=== PATIENT | female | born 1975 | race Caucasian/White ===

== ENCOUNTER 2018-10-19 13:52 | Emergency (ER) | payer MEDICARE, MEDICAID ==
--- NOTE | 2018-10-19 14:58 | Emergency Department Record ---
History of Present Illness - General Chief complaint: Vomiting Stated complaint: VOMITING Time Seen by Provider: 10/19/18 14:57 Source: Patient Mode of Arrival: Ambulatory Limitations: No limitations - History of Present Illness Initial comments: pt states she and her friend and her 's friend all became ill after eating food from [employer] in [place].. she has had vomiting and diarrhea MD complaint: Abdominal pain, Diarrhea, Nausea, Vomiting Onset/Timin -: Days(s) Description of Vomiting: Watery Description of Diarrhea: Water, Other Quality: Cramping Consistency: Intermittent Improves with: None Worsens with: None Context: Possible food poisoning Associated Symptoms: Nausea/vomiting - Related Data Home Medications Medication Instructions Recorded Confirmed Last Taken Escitalopram Oxalate [Lexapro] 20 mg PO QHS 10/19/18 10/19/18 10/18/18 Lorazepam [Ativan] 0.5 mg PO ASDIR 10/19/18 10/19/18 10/09/18 Quetiapine Fumarate [Seroquel] 100 mg PO QHS 10/19/18 10/19/18 10/18/18 Previous Rx's Medication Instructions Recorded Promethazine HCl [Phenergan] 12.5 mg PO Q8HR #10 tablet 10/19/18 Allergies Allergy/AdvReac Type Severity Reaction Status Date / Time cephalexin [From Keflex] Allergy RASH Verified 10/19/18 14:00 Penicillins Allergy RASH Verified 10/19/18 13:59 Sulfa (Sulfonamide Allergy RASH Verified 10/19/18 14:00 Antibiotics) Travel Screening - Travel/Exposure Within Last 30 Days Have you traveled within the last 30 days?: No - Travel/Exposure Within Last Year Have you traveled outside the [place] in the last year?: No - Additonal Travel Details Have you been exposed to anyone with a communicable illness?: No - Travel Symptoms Symptom Screening: None Review of Systems Reviewed: No additional complaints except as noted below Constitutional: Reports: As per HPI. Denies: Chills, Fever, Malaise, Night sweats, Weakness, Weight change Eyes: Reports: As per HPI. Denies: Eye discharge, Eye pain, Photophobia, Vision change ENT: Reports: As per HPI. Denies: Congestion, Dental pain, Ear pain, Epistaxis, Hearing loss, Throat pain Respiratory: Reports: As per HPI. Denies: Cough, Dyspnea, Hemoptysis, Stridor, Wheezes Cardiovascular: Reports: As per HPI. Denies: Arrhythmia, Chest pain, Dyspnea on exertion, Edema, Murmurs, Orthopnea, Palpitations, Paroxysmal nocturnal dyspnea, Rheumatic Fever, Syncope Endocrine: Reports: As per HPI. Denies: Fatigue, Heat or cold intolerance, Polydipsia, Polyuria Gastrointestinal: Reports: As per HPI, Abdominal pain, Diarrhea, Nausea, Vomiting. Denies: Constipation, Hematemesis, Hematochezia, Melena Genitourinary: Reports: As per HPI. Denies: Abnormal menses, Discharge, Dyspareunia, Dysuria, Frequency, Hematuria, Incontinence, Retention, Urgency Musculoskeletal: Reports: As per HPI. Denies: Arthralgia, Back pain, Gout, Joint swelling, Myalgia, Neck pain Skin: Reports: As per HPI. Denies: Bruising, Change in color, Change in hair/nails, Lesions, Pruritus, Rash Neurological: Reports: As per HPI. Denies: Abnormal gait, Confusion, Headache, Numbness, Paresthesias, Seizure, Tingling, Tremors, Vertigo, Weakness Psychiatric: Reports: As per HPI. Denies: Anxiety, Auditory hallucinations, Depression, Homicidal thoughts, Suicidal thoughts, Visual hallucinations Hematological/Lymphatic: Reports: As per HPI. Denies: Anemia, Blood Clots, Easy bleeding, Easy bruising, Swollen glands Past Medical History - SOCIAL HISTORY Smoking Status: Never smoker Alcohol Use: None Drug Use: Occasional Drug Use Detail:: Marijuana - RESPIRATORY Hx Respiratory Disorders: No - CARDIOVASCULAR Hx Cardio Disorders: No - NEURO Hx Neuro Disorders: No - GI Hx GI Disorders: No - Hx Genitourinary Disorders: No - ENDOCRINE Hx Endocrine Disorders: No - MUSCULOSKELETAL Hx Musculoskeletal Disorders: Yes Hx Fibromyalgia: Yes - PSYCH Hx Psych Problems: Yes Hx Anxiety: Yes Hx Depression: Yes Comment:: PTSD - HEMATOLOGY/ONCOLOGY Hx Hematology/Oncology Disorders: No Family Medical History Any Significant Family History?: No Family Hx Comment (NOT TO BE USED IN PLACE OF ITEMS BELOW): Adopted Physical Exam - General General Appearance: Alert, Oriented x3, Cooperative, No acute distress - Head Head exam: Normal inspection - Eye Eye exam: Normal appearance, PERRL, EOMI Pupils: Normal accommodation - ENT ENT exam: Normal exam, Mucous membranes moist, Normal external ear exam, Normal orophraynx Ear exam: Normal external inspection. negative: External canal tenderness Nasal Exam: Normal inspection. negative: Discharge, Sinus tenderness Mouth exam: Normal external inspection, Tongue normal Teeth exam: Normal inspection. negative: Dental caries Throat exam: Normal inspection. negative: Tonsillar erythema, Tonsillar exudate - Neck Neck exam: Normal inspection, Full ROM. negative: Tenderness - Respiratory Respiratory exam: Normal lung sounds bilaterally. negative: Respiratory distress - Cardiovascular Cardiovascular Exam: Regular rate, Normal rhythm, Normal heart sounds - GI/Abdominal GI/Abdominal exam: Soft, Normal bowel sounds, Hyperactive bowel sounds. negative: Tenderness - Rectal Rectal exam: Deferred - exam: Deferred - Extremities Extremities exam: Normal inspection, Full ROM, Normal capillary refill. negative: Tenderness - Back Back exam: Reports: Normal inspection, Full ROM. Denies: Muscle spasm, Rash noted, Tenderness - Neurological Neurological exam: Alert, Normal gait, Oriented X3, Reflexes normal - Psychiatric Psychiatric exam: Normal affect, Normal mood - Skin Skin exam: Dry, Intact, Normal color, Warm Course Vital Signs 10/19/18 14:04 Temperature 99 F Pulse Rate 77 Respiratory 18 Rate Blood Pressure 113/81 Pulse Ox 98 - Reevaluation(s) Reevaluation #1: 10/19/18 16:53 pt feels much better Medical Decision Making - Lab Data Result diagrams: 10/19/18 15:16 10/19/18 15:16 Disposition Disposition: Discharge Clinical Impression: Vomiting Qualifiers: Vomiting type: unspecified Vomiting Intractability: non-intractable Nausea presence: with nausea Qualified Code(s): R11.2 - Nausea with vomiting, unspecified Food poisoning Qualifiers: Encounter type: initial encounter Injury intent: accidental or unintentional Qualified Code(s): T62.91XA - Toxic effect of unspecified noxious substance eaten as food, accidental (unintentional), initial encounter Disposition: Home, Self-Care Condition: (1) Good Instructions: Acute Nausea and Vomiting (ED) Additional Instructions: follow up with family doctor. return sooner if worse. push fluids. Prescriptions: Promethazine HCl [Phenergan] 12.5 mg PO Q8HR #10 tablet Forms: Patient Portal Access Quality - Quality Measures Quality Measures: N/A - Blood Pressure Screening Does Patient Have Any of the Following: No Blood Pressure Classification: Pre-Hypertensive BP Reading Systolic Measurement: 113 Diastolic Measurement: 81 Screening for High Blood Pressure: < Pre-Hypertensive BP, F/U Documented > [[id number]] Pre-Hypertensive Follow-up Interventions: Follow-up with rescreen every year.
[2018-10-19] MEDS ORDERED: ONDANSETRON HCL IV 4 MG/2 ML VIAL IV ONE (15:03)
[2018-10-19] MEDS ORDERED: 0.9 % SODIUM CHLORIDE 1,000 ML BAG IV ONE (15:03)
[2018-10-19 15:31] LABS: ABSOLUTE NEUTROPHIL COUNT 4.82; HEMATOCRIT 43.7 % (35.0-47.0); HEMOGLOBIN 14.1 gm/dl (11.6-16.0); MEAN CELL VOLUME 89.5 fl (81-97); MEAN CORPUSCULAR HEMOGLOBIN 28.9 pg (27-33); MEAN CORPUSCULAR HGB CONC 32.3 g/dl (32-36); MEAN PLATELET VOLUME 13.2 fl (7.4-10.4); PLATELET COUNT 148 K/uL (130-400); RED BLOOD COUNT 4.88 M/uL (3.80-5.40); RED CELL DISTRIBUTION WIDTH 14.1 % (11.5-14.5)
[2018-10-19 15:43] LABS: BLOOD UREA NITROGEN 7 mg/dL (6-20); CREATININE 0.5 mg/dL (0.5-0.9); EST GLOMERULAR FILTRATION RATE > 60 mL/min; PLATELET ESTIMATE NORMAL (NORMAL)
[2018-10-19 15:44] LABS: LIPASE 28 U/L (13-60); TOTAL PROTEIN 6.2 g/dL (6.6-8.7)
[2018-10-19 15:46] LABS: GLUCOSE,RANDOM 97 mg/dL (74-109)
[2018-10-19 15:48] LABS: ALB/GLOB RATIO 1.5 (1.1-1.8); ALBUMIN 3.7 g/dL (4.0-5.0); ALKALINE PHOSPHATASE 119 U/L (35-104); ALT/SGPT 30 U/L (<33); AST/SGOT 22 U/L (10.0-35.0)
[2018-10-19 17:12] LABS: URINE APPEARANCE CLEAR; URINE BILIRUBIN SMALL (NEGATIVE); URINE BLOOD NEGATIVE (NEGATIVE); URINE COLOR YELLOW; URINE GLUCOSE (UA) NEGATIVE (NEGATIVE); URINE LEUKOCYTE ESTERASE NEGATIVE (NEGATIVE); URINE NITRITE NEGATIVE (NEGATIVE); URINE PROTEIN TRACE (NEGATIVE)
[2018-10-19 17:13] LABS: URINE KETONE 80 mg/dL (NEGATIVE)
[2018-10-19] MEDS ORDERED: ONDANSETRON HCL IV 4 MG/2 ML VIAL IVP ONE (17:28)
== END 2018-10-19 18:16 | disposition home or self-care (01) ==
LOC: ER 13:52
DX: T62.91XA Toxic effect of unspecified noxious substance eaten as food, accidental (unintentional), initial encounter (principal); R11.2 Nausea with vomiting, unspecified; R10.9 Unspecified abdominal pain; R19.7 Diarrhea, unspecified
CPT/HCPCS: 99284 ×2; 96376; 96374; 83690; 80053; 81003; 85027; J2405; J7030